=== PATIENT | male | born 1990 | race Two or more races ===

== ENCOUNTER 2023-05-31 09:00 | Emergency (ER) | payer MEDICAID ==
[~2023-05-31] VITALS: Ht 167.6 cm; Wt 85.9 kg
[2023-05-31 10:19] LABS: Basophils # (auto) 0 10 ^3/uL (0-0.2); Eosinophils # (auto) 0.3 10 ^3/uL (0-0.8); Monocytes # (auto) 0.5 10 ^3/uL (0-1.3); Red Cell Distribution Width 19.4 % (11.8-14.3); White Blood Cell 4.6 10^3/uL (4.4-10.8)
[2023-05-31 10:21] LABS: Basophils % (auto) 0.6 % (0.0-2.0); Eosinophils % (auto) 6.1 % (0.0-7.0); Hematocrit 34.2 % (41.0-53.0); Hemoglobin 11.1 g/dL (13.5-17.5); Lymphocytes # (auto) 1.4 10 ^3/uL (0.4-5.4); Lymphocytes % (auto) 29.7 % (10.0-50.0); Mean Corpuscular Hemoglobin 24.6 pg (28.0-32.0); Mean Corpuscular Hgb Conc. 32.4 g/dL (32.0-36.0); Monocytes % (auto) 10.3 % (0.0-12.0); Neutrophils # (auto) 2.4 10 ^3/uL (1.6-8.6); Neutrophils % (auto) 53.3 % (37.0-80.0); Red Blood Cells 4.51 10^6/uL (4.5-5.90)
[2023-05-31 10:36] LABS: Alanine Aminotransferase 58 U/L (7-40); Albumin 3.7 g/dL (3.2-4.8); Alkaline Phosphatase 145 U/L (46-116); Anion Gap 4 (5-15); Aspartate Aminotransferase 80 U/L (13-40); Bilirubin, Total 2.2 mg/dL (0.2-1.0); Blood Urea Nitrogen 12 mg/dL (9-23); Calcium 8.5 mg/dL (8.7-10.4); Carbon Dioxide 26 mmol/L (20-30); Chloride 108 mmol/L (98-107); Glucose 99 mg/dL (74-106); Lipase 50 U/L (12-53); Potassium 3.6 mmol/L (3.5-5.1); Sodium 138 mmol/L (136-145); Total Protein 6.9 g/dL (5.7-8.2)
[2023-05-31 11:27] LABS: Urine Bacteria NONE SEEN /hpf (None Seen); Urine Blood 3+ /uL (Negative); Urine Clarity HAZY (Clear); Urine Protein, UAD 1+ (Negative); Urine Specific Gravity 1.019 (1.001-1.035); Urine WBC 511 /hpf (0 - 3); Urine WBC Clumps PRESENT /hpf (None Seen); Urine pH 6.5 (5.0-8.0)
[2023-05-31 11:29] LABS: Urine Color AMBER (Yellow)
[2023-05-31 11:44] LABS: Amphetamine Screen, Urine Neg (NEGATIVE)
[2023-05-31 11:45] LABS: Barbiturate Scree,Urine Neg (NEGATIVE)
[2023-05-31 11:46] LABS: Benzodiazephine Screen, Urine Neg (NEGATIVE); Cannabinoid Screen, Urine Neg (NEGATIVE); Cocaine Screen, Urine Neg (NEGATIVE); Opiate Scree,Urine Neg (NEGATIVE); Phencyclidine Screen, Urine Neg (NEGATIVE)
[2023-05-31] MEDS ORDERED: BACDST PO (12:21)
[2023-05-31] MEDS ORDERED: cefTRIAXone SOD 1,000 MG VL IM ONE (12:30)
[2023-05-31 14:47] VITALS: BP 144/92; PULSE 90; RESP 18; TEMP 97.6; O2SAT 100
== END 2023-05-31 14:49 | disposition home or self-care (01) ==
LOC: ER 09:00
DX: K80.20 Calculus of gallbladder without cholecystitis without obstruction (principal); N39.0 Urinary tract infection, site not specified; R74.8 Abnormal levels of other serum enzymes; Z79.899 Other long term (current) drug therapy
CPT/HCPCS: 36415; 76700; 80053; 80307; 81001; 83690; 85025; 96372; 99285; J0696

== ENCOUNTER 2023-09-11 13:30 | Emergency (ER) | payer MEDICAID ==
[~2023-09-11] VITALS: Ht 172.7 cm; Wt 88.8 kg
[~2023-09-11 13:30] MED LIST: BACDST PO
[2023-09-11] MEDS: IPRATROPIUM BROM 0.5 MG/2.5ML INH SOL NEB ONE (14:02)
[2023-09-11] MEDS: BUDESONIDE (INHALATION) 0.5 MG/2 ML NEB NEB ONE (14:02)
[2023-09-11] MEDS: ALBUTEROL SULF 2.5 MG/0.5ML(0.5%) NEB SOLN NEB ONE (14:02)
[2023-09-11] MEDS ORDERED: ALBU108A5 IN (15:15)
[2023-09-11 15:25] VITALS: BP 141/86; PULSE 100; RESP 16; TEMP 98.3; O2SAT 97
== END 2023-09-11 15:27 | disposition home or self-care (01) ==
LOC: ER 13:30
DX: J45.901 Unspecified asthma with (acute) exacerbation (principal)
CPT/HCPCS: 94640; 99283; J7644

== ENCOUNTER 2024-04-08 06:45 | Emergency (ER) | payer MEDICAID ==
[~2024-04-08] VITALS: Ht 167.6 cm; Wt 103.2 kg
[~2024-04-08 06:45] MED LIST changes: +ALBU108A5 IN
[2024-04-08 07:32] VITALS: BP 157/93; PULSE 91; RESP 18; TEMP 97.5; O2SAT 97
[2024-04-08] MEDS: HYDROcodone-ACET 5/325MG TAB PO ONE (07:36)
[2024-04-08] MEDS: KETOROLAC TROMETH 60MG/2ML VIAL IM ONE (07:37)
[2024-04-08] MEDS ORDERED: IBUP-1456 PO (08:06)
[2024-04-08] MEDS ORDERED: GABA-339 PO (08:06)
== END 2024-04-08 08:08 | disposition home or self-care (01) ==
LOC: ER 06:45
DX: G89.29 Other chronic pain (principal); M54.42 Lumbago with sciatica, left side; J45.909 Unspecified asthma, uncomplicated; Z79.899 Other long term (current) drug therapy
CPT/HCPCS: 96372; 99283; J1885